=== PATIENT | female | born 1950 | race Hispanic/Latino ===

== ENCOUNTER 2020-09-10 12:11 | Observation (INO) | payer MEDICARE ==
[~2020-09-10] VITALS: Ht 162.6 cm; Wt 88.5 kg
[2020-09-10] MEDS ORDERED: TETANUS/DIPHTHERIA TOXOID [ADULT] 0.5 ML VIAL IM ONE (12:46)
[2020-09-10 12:58] LABS: BASOPHILS % (AUTO) 0.7 % (0.0-5.0); HEMATOCRIT 41.5 % (36-48); LYMPHOCYTES % (AUTO) 15.9 % (21.0-51.0); MEAN CORPUSCULAR HEMOGLOBIN 31.6 pg (27.0-33.0); MEAN CORPUSCULAR HGB CONC 34.5 g/dL (32.0-36.0); MEAN CORPUSCULAR VOLUME 91.8 fL (79-99); PLATELET COUNT (AUTO) 238 K/uL (130-400); RED BLOOD CELL COUNT(AUTO) 4.52 MIL/uL (4.00-5.50); WHITE BLOOD COUNT (AUTO) 7.2 K/uL (4.8-10.8)
[2020-09-10 13:14] LABS: INR 0.99 (0.85-1.15); PROTHROMBIN TIME 10.8 SEC (9.6-11.6)
[2020-09-10 13:15] LABS: PARTIAL THROMBOPLASTIN TIME 22.2 SEC (26.3-35.5)
[2020-09-10 13:17] LABS: ALBUMIN 3.6 g/dL (3.5-5.0); BILIRUBIN,TOTAL 0.4 mg/dL (0.2-1.0); CREATININE 0.7 mg/dL (0.5-1.5); POTASSIUM 4.2 mmol/L (3.5-5.1); TOTAL PROTEIN, SERUM 7.4 g/dL (6.0-8.3)
[2020-09-10] MEDS ORDERED: SODIUM CHLORIDE 0.9% 1000ML 1,000 ML IV ONE (13:36)
[2020-09-10] MEDS ORDERED: INSULIN HUMULIN R 100 UNIT/ML 3ML ONE ×2 (13:36→17:06)
[2020-09-10 14:40] LABS: APPEARANCE,URINE Clear (CLEAR); BILIRUBIN,URINE Negative (NEGATIVE); COLOR,URINE Yellow (YELLOW); GLUCOSE, URINE (UA) >=1000 mg/dL (NEGATIVE); KETONES,URINE 15 mg/dL (NEGATIVE); LEUKOCYTE ESTERASE ,URINE Negative (NEGATIVE); NITRATE,URINE Negative (NEGATIVE); OCCULT BLOOD,URINE Negative (NEGATIVE); PROTEIN,URINE Negative (NEGATIVE); UROBILINOGEN,URINE 0.2 mg/dL (0.2-1.0)
[2020-09-10 15:45] LABS: BACTERIA,URINE Rare /HPF (None Seen); RBC,URINE 0-1 /HPF (0-1); SQUAMOUS EPITHELIAL CELL,UR Rare /HPF (0-2); WBC,URINE 0-1 /HPF (0-1); YEAST,URINE BUDDING Rare /HPF (None Seen)
[2020-09-10] MEDS ORDERED: HYDROCODONE/ACETAMINOPHEN 10/325 MG TAB ONE (16:06)
[2020-09-10] MEDS ORDERED: DiphenhydrAMINE HCL 50 MG/ML VIAL IV PRN (16:15)
[2020-09-10] MEDS ORDERED: GUAIFENESIN-DM 200/20 MG 10 ML PO PRN (16:15)
[2020-09-10] MEDS ORDERED: ACETAMINOPHEN 325 MG TAB PO PRN ×2 (16:15)
[2020-09-10] MEDS ORDERED: GLUCAGON 1MG KIT 1 MG ML IM PRN (16:15)
[2020-09-10] MEDS ORDERED: LACTULOSE 20 GM/30 ML UDCUP PO PRN (16:15)
[2020-09-10] MEDS: INSULIN HUMULIN R 100 UNIT/ML 3ML SQ SCH ×3 (16:15→21:00)
[2020-09-10] MEDS ORDERED: DEXTROSE 50%-WATER 50 ML DISP.SYRIN IV PRN (16:15)
[2020-09-10] MEDS ORDERED: NITROGLYCERIN 0.4 MG SL TAB SL PRN (16:15)
[2020-09-10] MEDS ORDERED: DIPHENHYDRAMINE HCL 25 MG CAPSULE PO PRN (16:15)
[2020-09-10] MEDS ORDERED: LACTATED RINGERS 1000ML 1,000 ML IV SCH (16:15)
[2020-09-10] MEDS ORDERED: ONDANSETRON HCL 4 MG/2 ML VIAL IV PRN (16:15)
[2020-09-10] MEDS ORDERED: MAG HYDROX/AL HYDROX/SIMETH ES 30 ML SUSP UDCUP PO PRN (16:15)
[2020-09-10 16:31] LABS: HEMOGLOBIN A1C 12.2 % (4.0-6.0)
[2020-09-10] MEDS ORDERED: LACTATED RINGERS 1000ML 1,000 ML IV ONE (17:06)
[2020-09-10] MEDS ORDERED: TRAMADOL /APAP 37.5MG/325MG TAB PO PRN (18:00)
[2020-09-10] MEDS ORDERED: HYDROMORPHONE HCL 0.5 MG/0.5 ML ML ONE (19:49)
[2020-09-10] MEDS ORDERED: HEPARIN SODIUM 5000UNIT/ML 1ML VIAL ONE (19:49)
[2020-09-10] MEDS ORDERED: FAMOTIDINE/PF 20 MG/2 ML VIAL IV ONE (19:50)
[2020-09-10] MEDS: DOCUSATE SODIUM 100 MG CAP PO SCH (21:00)
[2020-09-10] MEDS: FAMOTIDINE/PF 20 MG/2 ML VIAL IV SCH (21:00)
[2020-09-10] MEDS: HEPARIN SODIUM 5000UNIT/ML 1ML VIAL SQ SCH (21:00)
[2020-09-11 00:15] VITALS: BP 134/76
[2020-09-11] MEDS: HYDROMORPHONE HCL 0.5 MG/0.5 ML ML IV PRN ×2 (02:43→10:00)
[2020-09-11 04:07] VITALS: BP 130/73
[2020-09-11] MEDS: INSULIN HUMULIN R 100 UNIT/ML 3ML SQ SCH ×5 (05:28→20:44)
[2020-09-11 08:13] VITALS: BP 129/73
[2020-09-11] MEDS: DOCUSATE SODIUM 100 MG CAP PO SCH ×2 (09:00→20:44)
[2020-09-11] MEDS: HEPARIN SODIUM 5000UNIT/ML 1ML VIAL SQ SCH ×2 (09:00→20:43)
[2020-09-11] MEDS: FAMOTIDINE/PF 20 MG/2 ML VIAL IV SCH ×2 (09:00→20:42)
[2020-09-11 11:45] VITALS: BP 116/61
[2020-09-11 16:28] VITALS: BP 119/66
[2020-09-11 19:59] VITALS: BP 131/71
[2020-09-12 00:36] VITALS: BP 124/70
[2020-09-12] MEDS: HYDROMORPHONE HCL 0.5 MG/0.5 ML ML IV PRN ×3 (00:57→15:06)
[2020-09-12 03:35] LABS: BASOPHILS % (AUTO) 0.9 % (0.0-5.0); EOSINOPHILS % (AUTO) 2.6 % (0.0-8.0); HEMATOCRIT 30.2 % (36-48); LYMPHOCYTES % (AUTO) 36.4 % (21.0-51.0); MEAN CORPUSCULAR HEMOGLOBIN 32.1 pg (27.0-33.0); MEAN CORPUSCULAR HGB CONC 34.8 g/dL (32.0-36.0); MEAN CORPUSCULAR VOLUME 92.4 fL (79-99); MONOCYTES % (AUTO) 11.4 % (3.0-13.0); NEUTROPHILS % (AUTO) 48.4 % (40.0-77.0); PLATELET COUNT (AUTO) 210 K/uL (130-400); RED BLOOD CELL COUNT(AUTO) 3.27 MIL/uL (4.00-5.50); RED CELL DISTRIBUTION WIDTH 12.1 % (11.0-15.5); WHITE BLOOD COUNT (AUTO) 5.8 K/uL (4.8-10.8)
[2020-09-12 03:43] LABS: CREATININE 0.5 mg/dL (0.5-1.5); POTASSIUM 3.6 mmol/L (3.5-5.1)
[2020-09-12 04:12] VITALS: BP 112/63
[2020-09-12] MEDS: INSULIN HUMULIN R 100 UNIT/ML 3ML SQ SCH ×4 (07:04→16:45)
[2020-09-12 08:40] VITALS: BP 141/72
[2020-09-12] MEDS: DOCUSATE SODIUM 100 MG CAP PO SCH (10:25)
[2020-09-12] MEDS: FAMOTIDINE/PF 20 MG/2 ML VIAL IV SCH (10:25)
[2020-09-12] MEDS ORDERED: GLIM2TAB30 PO (10:27)
[2020-09-12] MEDS ORDERED: LISI10TA24 PO (10:27)
[2020-09-12] MEDS: HEPARIN SODIUM 5000UNIT/ML 1ML VIAL SQ SCH (10:39)
[2020-09-12 11:27] VITALS: BP 113/70
[2020-09-12] MEDS ORDERED: TRAMADOL /APAP 37.5MG/325MG TAB PO SCH (16:00)
[2020-09-12 16:29] VITALS: BP 128/72
== END 2020-09-12 20:40 | disposition home or self-care (01) ==
LOC: EDH 12:11 → EDHIP 16:15 → INTOOBSV 16:15 → 4AH 23:47
PROVIDERS: ADMIT Family Medicine; ATTEND Family Medicine
DX: S82.252A Displaced comminuted fracture of shaft of left tibia, initial encounter for closed fracture (principal); S82.452A Displaced comminuted fracture of shaft of left fibula, initial encounter for closed fracture; Z20.822 Contact with and (suspected) exposure to COVID-19; S82.52XA Displaced fracture of medial malleolus of left tibia, initial encounter for closed fracture; E11.40 Type 2 diabetes mellitus with diabetic neuropathy, unspecified; I10 Essential (primary) hypertension; E78.5 Hyperlipidemia, unspecified; E44.0 Moderate protein-calorie malnutrition; E11.65 Type 2 diabetes mellitus with hyperglycemia; Z99.3 Dependence on wheelchair; Z23 Encounter for immunization; Z79.84 Long term (current) use of oral hypoglycemic drugs; Z79.899 Other long term (current) drug therapy; W18.2XXA Fall in (into) shower or empty bathtub, initial encounter; Y93.E1 Activity, personal bathing and showering; Y92.002 Bathroom of unspecified non-institutional (private) residence as the place of occurrence of the external cause
CPT/HCPCS: 29505; 36415 ×2; 70450; 71045; 72125; 73562; 73590 ×2; 73610 ×2; 80048; 80053; 81001; 82010; 82948 ×9; 83036; 84484; 85025 ×2; 85610; 85730; 87426; 90471; 90714; 93005; 96372 ×2; 96374; 96375; 96376 ×2; 99285; G0378 ×53; J1170 ×7; J1644 ×3; J1815 ×5; J3490 ×3; J7030; J7120; U0003

== ENCOUNTER → 2022-10-26 | Outpatient (CLI) | payer OTHER ==
[~2022-10-26] MED LIST: GLIM2TAB30 PO; LISI10TA24 PO
== END | disposition home or self-care (01) ==
LOC: RAH 11:26
PROVIDERS: ATTEND Internal Medicine Cardiovascular Disease
DX: Z13.6 Encounter for screening for cardiovascular disorders (principal)
CPT/HCPCS: 75571